=== PATIENT | male | born 1955 | race Asian ===

== ENCOUNTER → 2017-03-15 | Outpatient (CLI) | payer OTHER ==
[~2017-03-15] MED LIST: IBUP-1724 PO; METF500T4 PO; NAPR500T3 PO; PRED20TA PO; [UNRECOGNIZED DRUG - OTHER]; [UNRECOGNIZED DRUG - OTHER]
[2017-03-15 12:16] LABS: HCT - HEMATOCRIT 37.8 % (41-53); HGB - HEMOGLOBIN 13.7 GM/DL (13.5-17.5); MEAN CORPUSCULAR HGB CONC(MCHC 36.2 GM/DL (31-37); MEAN CORPUSCULAR VOLUME 82.7 UM3 (80-100); MEAN PLATELET VOLUME 9.2 UM3 (9.4-12.4); RED BLOOD COUNT 4.57 M/MM3 (4.50-5.90); WBC - WHITE BLOOD COUNT 9.4 T/MM3 (4.5-11.0)
[2017-03-15 12:25] LABS: ALBUMIN 4.4 G/DL (3.5-5.0); ALBUMIN/GLOBULIN RATIO 1.6 RATIO (1.1-2.2); ALKALINE PHOSPHATASE 76 U/L (38-126); ALT (SGPT) 33 U/L (21-72); ANION GAP 12 MEQ/L (5-15); AST (SGOT) 22 U/L (17-59); BUN/CREATININE RATIO 15 RATIO (6-26); CALCIUM 9.5 MG/DL (8.4-10.2); CHLORIDE 99 MEQ/L (98-107); CO2 - CARBON DIOXIDE 31 MEQ/L (22-30); GLOMERULAR FILTRATION RATE 75; GLUCOSE 138 MG/DL (75-110); POTASSIUM 3.6 MEQ/L (3.6-5); SODIUM 142 MEQ/L (134-144); TOTAL PROTEIN 7.2 G/DL (6.3-8.2); URIC ACID 7.1 MG/DL (3.5-8.5)
[2017-03-15 12:33] LABS: BAND NEUTROPHILS # 0.1 T/MM3; EOSINOPHILS # (MANUAL) 0.2 T/MM3 (0-0.5); LYMPHOCYTES # (MANUAL) 2.4 T/MM3 (1-4.8); MONOCYTES # (MANUAL) 0.3 T/MM3 (0-0.8); NEUTROPHILS #(MANUAL)-ABSOLUTE 6.5 T/MM3 (1.8-7.7); TOTAL CELLS COUNTED 100 %
== END ==
LOC: LAB 12:00
PROVIDERS: ATTEND Nurse Practitioner
DX: M10.9 Gout, unspecified (principal)
CPT/HCPCS: 80053; 84550; 85007; 85027